=== PATIENT | female | born 1970 | race Caucasian/White ===

== ENCOUNTER 2016-09-28 14:10 | Inpatient (IN) | payer OTHER ==
[~2016-09-28] VITALS: Ht 167.6 cm; Wt 95.9 kg
[2016-09-29] MEDS ORDERED: VITATAB11 PO (12:07)
[2016-09-29] MEDS ORDERED: HYDR-3288 PO (12:07)
[2016-09-29] MEDS ORDERED: METO50TA PO (12:07)
[2016-09-29] MEDS ORDERED: CALCCHW23 CHEW (12:07)
[2016-09-29] MEDS ORDERED: MULT-120 PO (12:07)
[2016-09-29] MEDS ORDERED: OMEGCAP19 PO (12:07)
[2016-10-12] MEDS ORDERED: LABETALOL HCL 100 MG/20 ML VIAL IV ONE (05:00)
[2016-10-12] MEDS ORDERED: PHENYLEPHRINE HCL 10 MG/ML VIAL IV ONE (05:00)
[2016-10-12] MEDS ORDERED: PROPOFOL 1000 MG/100 ML INJ 100 ML IV ONE (05:00)
[2016-10-12] MEDS ORDERED: METOPROLOL TARTRATE 25 MG TAB PO PRN (05:45)
[2016-10-12] MEDS ORDERED: INSULIN HUMAN REGULAR 1,000 UNITS/10 ML VIAL SQ PRN (05:45)
[2016-10-12 05:57] VITALS: BP 142/75; PULSE 50; RESP 20; TEMP 98; O2SAT 98
[2016-10-12] MEDS ORDERED: VANCOMYCIN HCL 1000 MG VIAL ONE (06:00)
[2016-10-12] MEDS ORDERED: SODIUM CHLOR 0.9% 250 ML INJ 250 ML ONE (06:01)
[2016-10-12] MEDS ORDERED: VANCOMYCIN 1000 MG/NS 250 ML (for <70 kg) IV SCH ×2 (06:15)
[2016-10-12] MEDS ORDERED: ceFAZolin 2 GM PREMIX 50 ML ONE (06:30)
[2016-10-12] MEDS ORDERED: GENTAMICIN SULFATE 80 MG/2 ML VIAL ONE (06:30)
[2016-10-12] MEDS ORDERED: MIDAZOLAM HCL 2 MG/2 ML VIAL ONE (06:44)
[2016-10-12] MEDS ORDERED: FAMOTIDINE 20 MG/2 ML VIAL ONE (06:44)
[2016-10-12] MEDS ORDERED: fentaNYL CITRATE 250 MCG/5 ML AMP ONE (06:48)
[2016-10-12] MEDS ORDERED: ACETAMINOPHEN 1000 MG/100 ML VIAL IV ONE (06:48)
[2016-10-12] MEDS ORDERED: DEXAMETHASONE SOD PHOS 4 MG/ML VIAL ONE (06:49)
[2016-10-12] MEDS ORDERED: SODIUM CHLORID 0.9% 500 ML IV SCH (07:00)
[2016-10-12] MEDS ORDERED: SODIUM CHLORIDE 0.9% IV SCH (07:00)
[2016-10-12] MEDS ORDERED: TRANEXAMIC ACID IV SCH (07:00)
[2016-10-12] MEDS ORDERED: EXPAREL PERI-ARTICULAR INJECTION (TOTAL VOL. 60 ML) P-ARTICULR SCH ×2 (07:00)
[2016-10-12] MEDS ORDERED: LACTATED RINGER'S 1000 ML IV SCH (07:00)
[2016-10-12] MEDS ORDERED: HYDR-3366 PO (07:13)
[2016-10-12] MEDS ORDERED: XARE10TA PO (07:13)
--- NOTE | 2016-10-12 09:27 | PD.OP ---
cc: Darius Barraza MD Operative Report Date of Surgery: Oct 12, 2016 Preoperative Diagnosis: Severe right hip osteoarthritis Postoperative Diagnosis: Procedure: Right total hip arthroplasty via anterior approach Anesthesia: Gen. Surgeon: Darius Barraza Molecular Pathologist(s): PAIGE Arias PA-C The surgical procedure was assisted by my physician nurse's assistant. My P.A. presence was necessary throughout this case for the manipulation and positioning of the surgical extremity. My P.A. was assisting me throughout the duration of this procedure. The skill set of a physician nurse's assistant was medically necessary to complete this procedure. During the surgical case the surgical specialist was working at the back table and the physician nurse's assistant was directly assisting me. Operation and Findings: PLAN OF ACTIVITY Weight bear as tolerated. DRAINS: 7-mm KRISTI drain. IMPLANTS USED DePuy Corail size [13] stem with a size [50] [place] Gription cup and a [+1.5] ceramic Biolox ceramic head. DETAILS OF PROCEDURE: This patient has a long history of hip pain. Patient was found to have severe osteoarthritis. The patient had radiographic evidence of joint space narrowing with [id number] arthritis and osteophytes around the acetabulum as well as the femoral head. There was also some cystic changes. The patient failed conservative treatment with pain medications, anti-inflammatories, physical therapy, assistive devices including a cane, as well as therapeutic injection of the hip. Patient's hip arthritis was limiting his ability to ambulate and perform activities of daily living. The patient wished to proceed with surgery and informed consent was obtained. Operative site was marked. I discussed both posterior approach and anterior approach with the patient and decision was made for anterior approach. Patient was brought to OR and placed on OR table. IV sedation and general anesthesia was administered by anesthesiologist. Patient positioned on a Reina table and was given IV antibiotics. Time-out procedure was performed. The hip and thigh were prepped with alcohol followed by Hibiclens. The thigh was draped in the usual sterile fashion. Clean Air Suite was used for this procedure. The procedure began with a 5-inch incision over the anterolateral thigh. Subcutaneous tissue was dissected with Bovie. The fascia over the tensa fasciae latae was incised. Care was taken to avoid injury to the lateral femoral cutaneous nerve. The tensor muscle was retracted laterally. Sartorius was retracted medially. Retractors were now placed. The reflected head of the rectus is now elevated. A capsulotomy was performed over the anterior head capsule. Sutures were placed to help retract the capsule. At this point the femoral head and neck were identified. With soft tissue protected, oscillating saw was used to make a cut through the femoral neck, the femoral head was now removed. At this point attention was turned to preparation of the acetabulum. The labrum was excised. The acetabulum was sequentially reamed up to size [50]. A [place] cup was now placed. Fluoroscopy was used to aid in identification of appropriate version. Cup was fully impacted and found to have excellent fit. Hole eliminator was now placed. The liner was now impacted into the cup. At this point the hip was externally rotated. A hook was placed around the proximal femur. The capsule was released off the lateral and medial femur. The hip was now extended and adducted. Retractors were placed around the proximal femur to allow for exposure. A box osteotome was used to remove the lateral cortex of the femoral neck. A broach was used to help lateralize the prosthesis. Canal finder was used to create a path down the canal. Next, the canal was sequentially broached up to size [12]. A standard head was placed, and the hip was reduced. The hip was found to have good stability with good range of motion. The leg lengths were measured under fluoroscopy. The right leg was significantly shorter than the left. At this point a +9 head was now placed. Hip was again reduced. Leg lengths were found to be equal however the patient had significant increase in offset. At this point the 12 trial was removed. A size 13 trial broach was placed. The 13 broach was left in an elevated position to help correct the leg length discrepancy. A standard head was now placed. Hip was reduced. Leg lengths appeared to be equal. Patient had good stability throughout range of motion. Trial broach was removed. The Corail stem was opened. Stem was fully impacted into the proximal femur in appropriate version. The femoral head was placed. The hip was again reduced. Fluoroscopy confirmed excellent alignment of prosthesis. The wound was thoroughly irrigated and capsule was closed with #1 Vicryl. The fascia over the tensor fasciae muscle was closed with #1 Vicryl, subcutaneous tissue was closed with 3-0 Vicryl and the skin was closed with claudio and Dermabond skin closure. The capsule layers were injected with a mixture of saline and bupivicaine. Dressings were applied. The patient was transferred to Recovery Room in stable condition. Darius Barraza MD Oct 12, 2016 09:27
[2016-10-12] MEDS ORDERED: NALOXONE HCL 0.4 MG/ML AMP IV PRN (09:30)
[2016-10-12] MEDS ORDERED: ONDANSETRON HCL 4 MG/2 ML VIAL IVP PRN (09:30)
[2016-10-12] MEDS ORDERED: SODIUM CHLORIDE 0.9% FLUSH 5 ML FLUSH IVF PRN (09:30)
[2016-10-12] MEDS ORDERED: Post-op Orders (for Pharmacy) MISC XX ONE (09:30)
[2016-10-12] MEDS ORDERED: *HYDROmorphone PF 1 MG VIAL PERIprocedural Use ONLY ONE ×2 (09:45→10:12)
[2016-10-12] MEDS: LACTATED RINGER'S 1000 ML INJ 1,000 ML IV SCH ×2 (09:57→20:28)
[2016-10-12] MEDS: KETOROLAC TROMETHAMINE 30 MG/ML (IVP) VIAL IV PUSH SCH ×2 (10:00→22:09)
[2016-10-12] MEDS ORDERED: DO NOT ADM ANY ANTICOAGULANT DRUGS XX PRN (10:00)
[2016-10-12] MEDS ORDERED: NEOSTIGMINE 3 MG/3 ML SYR IV ONE (10:14)
[2016-10-12] MEDS ORDERED: PROPOFOL 200 MG/20 ML AMP IV ONE (10:14)
[2016-10-12] MEDS: ACETAMINOPHEN/HYDROcodone 325 MG/10 MG TAB PO PRN ×4 (10:15→22:22)
[2016-10-12] MEDS ORDERED: LACTATED RINGER'S 1000 ML INJ 1,000 ML IV ONE (10:15)
[2016-10-12] MEDS ORDERED: ONDANSETRON HCL 4 MG/2 ML VIAL IV PUSH ONE (10:15)
[2016-10-12] MEDS ORDERED: *MEPERIDINE 25 MG INJ VIAL PERIprocedural Use ONLY ONE (10:20)
--- NOTE | 2016-10-12 10:24 | RADRPT ---
EXAM DATE/TIME: 10/12/2016 09:42 [facility] COMPARISON: No previous studies available for comparison. INDICATIONS : Post surgery right hip MEDICAL HISTORY : None. SURGICAL HISTORY : None. ENCOUNTER: Initial ACUITY: 1 day PAIN SCORE: 10/10 LOCATION: Right Hip FINDINGS: No postoperative changes of right total hip replacement. Drain in soft tissues. Skin claudio laterall y. Normal alignment. CONCLUSION: 1. Postoperative right total hip replacement. John Bolanos MD on October 12, 2016 at 10:22 Board Certified Radiologist. This report was verified electronically.
[2016-10-12] MEDS ORDERED: *ENALAPRILAT 1.25 MG/ML VIAL PERIprocedural Use ONLY ONE (10:28)
[2016-10-12] MEDS ORDERED: TRANEXAMIC ACID INJ 1,000 MG in SODIUM CHLORIDE 0.9% INJ 100 ML IV ONE (10:30)
[2016-10-12 12:17] VITALS: BP 144/78; PULSE 57; RESP 17; TEMP 95.8; O2SAT 99
[2016-10-12] MEDS: HYDROmorphone HCL PF 1 MG/ML VIAL IV PUSH PRN ×2 (12:35→16:55)
[2016-10-12] MEDS: ceFAZolin 2 GM PREMIX 50 ML IV SCH ×2 (12:36→19:22)
[2016-10-12 17:00] VITALS: BP 106/63; PULSE 57; RESP 16; TEMP 95.3; O2SAT 99
[2016-10-12 17:54] VITALS: O2SAT 97
--- NOTE | 2016-10-12 17:56 | RADRPT ---
EXAM DATE/TIME: 10/12/2016 07:26 [facility] COMPARISON: No previous studies available for comparison. INDICATIONS : Right total hip replacement. MEDICAL HISTORY : None. SURGICAL HISTORY : None. ENCOUNTER: Initial ACUITY: 1 day PAIN SCORE: Non-responsive. LOCATION: Right hip. FINDINGS: Examination of the hip demonstrates total hip arthroplasty in satisfactory position. The alignment is anatomic. CONCLUSION: Post surgical changes as above. He Minor MD on October 12, 2016 at 17:54 Board Certified Radiologist. This report was verified electronically.
[2016-10-12] MEDS: VANCOMYCIN INJ 1,000 MG in SODIUM CHLOR 0.9% 250 ML INJ 250 ML IV SCH (19:21)
[2016-10-12 19:50] VITALS: BP 102/60; PULSE 57; RESP 15; TEMP 96.6; O2SAT 99
[2016-10-12] MEDS: SODIUM CHLORIDE 0.9% FLUSH 5 ML FLUSH IVF SCH (20:28)
[2016-10-13] VITALS (8 sets, daily range): BP systolic 94–128; BP diastolic 46–62; PULSE 54–82; RESP 16–18; TEMP 95.3–97.8; O2SAT 98–100
[2016-10-13] MEDS: ceFAZolin 2 GM PREMIX 50 ML IV SCH (00:20)
[2016-10-13] MEDS: ACETAMINOPHEN/HYDROcodone 325 MG/10 MG TAB PO PRN ×6 (02:20→19:38)
[2016-10-13] MEDS: CHLORHEXIDINE GLUCONATE 4% SOLN 120 ML BTL TOP SCH (02:37)
[2016-10-13] MEDS: VANCOMYCIN INJ 1,000 MG in SODIUM CHLOR 0.9% 250 ML INJ 250 ML IV SCH (05:25)
--- NOTE | 2016-10-13 07:11 | PD.ORT.PN ---
Subjective Subjective Remarks POD 1 s/p Right VERONICA - anterior doing well. no hip pain. reports pain in knee. out of bed and walked in room yesterday Objective Vitals Vital Signs Date Time Temp Pulse Resp B/P Pulse Ox O2 Delivery O2 Flow Rate FiO2 10/13/16 04:00 97.7 82 16 97/46 98 10/13/16 02:18 97.7 100/54 10/13/16 00:20 96.8 62 18 94/62 100 10/12/16 19:50 96.6 57 15 102/60 99 10/12/16 17:54 97 Nasal Cannula 2.00 10/12/16 17:00 95.3 57 16 106/63 99 10/12/16 12:17 95.8 57 17 144/78 99 10/12/16 11:50 55 13 151/87 99 Nasal Cannula 2 10/12/16 11:30 97.7 54 16 151/84 99 Nasal Cannula 2 10/12/16 11:00 52 13 153/95 99 Nasal Cannula 2 10/12/16 10:45 55 12 172/96 99 Nasal Cannula 2 10/12/16 10:30 52 15 172/102 99 Nasal Cannula 2 10/12/16 10:15 51 15 195/79 99 Nasal Cannula 2 10/12/16 10:00 55 13 174/97 99 Nasal Cannula 2 10/12/16 09:45 49 14 160/90 99 Nasal Cannula 2 10/12/16 09:36 98.6 80 16 158/79 99 Simple Mask 6 I/O 10/12/16 10/12/16 10/12/16 10/13/16 10/13/16 10/13/16 07:00 15:00 23:00 07:00 15:00 23:00 Intake Total 1290 ml 1779 ml 1174 ml Output Total 920 ml 1150 ml 1090 ml Balance 370 ml 629 ml 84 ml Intake Oral 290 ml 720 ml 480 ml IV Total 1059 ml 694 ml Other 1000 ml Output Urine Total 350 ml 950 ml 1000 ml Drainage Total 80 ml 200 ml 90 ml Estimated Blood Loss 400 ml Other 90 ml # Bowel Movements 0 0 0 Imaging Last 24 hours Impressions Hip and Pelvis X-Ray 10/12/16 0919 Signed Impressions: Service Date/Time: October 09:42 - CONCLUSION: 1. Postoperative right total hip replacement. John Bolanos MD Objective Remarks RLE: dressings clean and dry. intact. +drain. NVI Assessment & Plan Assessment and Plan 1) Right Anterior VERONICA - POD 1 -WBAT -DC drain with daily dressing changes on POD 2 -CM for rehab placement -DVT prophylaxis with lovenox. DC with Xarelto -RX on chart -3008 completed and on chart -plan for DC to rehab on sunday -f/u with [facility] or [facility] in 2 weeks Zion Turpin Oct 13, 2016 07:11
[2016-10-13] MEDS: KETOROLAC TROMETHAMINE 30 MG/ML (IVP) VIAL IV PUSH SCH ×2 (08:26→22:05)
[2016-10-13] MEDS: ENOXAPARIN SODIUM 40 MG/0.4 ML SYRINGE SQ SCH (08:27)
[2016-10-13 10:11] LABS: HEMATOCRIT 28.5 % (35.0-46.0); REVIEW FLAG FINAL
[2016-10-13] MEDS: DOCUSATE SODIUM 100 MG CAP PO SCH (19:37)
[2016-10-13] MEDS: SODIUM CHLORIDE 0.9% FLUSH 5 ML FLUSH IVF SCH (19:40)
[2016-10-13] MEDS: LACTATED RINGER'S 1000 ML INJ 1,000 ML IV SCH (22:49)
[2016-10-14] VITALS: BP 117/56; PULSE 63; RESP 20; TEMP 97.1; O2SAT 100
[2016-10-14] MEDS: ACETAMINOPHEN/HYDROcodone 325 MG/10 MG TAB PO PRN ×7 (00:02→21:02)
[2016-10-14] MEDS: CHLORHEXIDINE GLUCONATE 4% SOLN 120 ML BTL TOP SCH (06:15)
--- NOTE | 2016-10-14 07:29 | PD.ORT.PN ---
Subjective Subjective Remarks Right hip pain but controlled with PO meds. No new radiating leg pain today. No other complaints. No CP or SOB. Objective Vitals Vital Signs Date Time Temp Pulse Resp B/P Pulse Ox O2 Delivery O2 Flow Rate FiO2 10/14/16 00:00 97.1 63 20 117/56 100 10/13/16 20:00 97.0 67 18 128/59 98 10/13/16 18:30 99 21 10/13/16 16:00 96.8 57 16 107/60 100 10/13/16 12:00 95.3 64 16 100/56 99 10/13/16 08:22 2.00 10/13/16 08:15 97.8 54 16 99/55 100 I/O 10/13/16 10/13/16 10/13/16 10/14/16 10/14/16 10/14/16 07:00 15:00 23:00 07:00 15:00 23:00 Intake Total 1174 ml 480 ml 720 ml 240 ml Output Total 1090 ml 1190 ml 350 ml Balance 84 ml -710 ml 370 ml 240 ml Intake Oral 480 ml 480 ml 720 ml 240 ml IV Total 694 ml Output Urine Total 1000 ml 1100 ml 350 ml Drainage Total 90 ml 90 ml # Voids 0 1 # Bowel Movements 0 0 0 0 Result Diagram: 10/13/16920 Imaging Last 24 hours Impressions Hip and Pelvis X-Ray 10/12/16918 Signed Impressions: Service Date/Time: October 09:42 - CONCLUSION: 1. Postoperative right total hip replacement. John Bolanos MD Objective Remarks Sitting up in bed, NAD VSS RLE Dressing c/d/i, no erythema, mild swelling thigh and calf supple, neg homans +motor at, +sens, +nvi Pt seen and evaluated by Dr. Sim Casper Assessment & Plan Ortho Post Op Day #: 2 Problem List: Assessment and Plan 1) Right Anterior VERONICA - POD 2 -Ortho stable -PT - WBAT RLE. Walker as needed. -Drain dc'd yesterday. Dry daily dressing changes on POD 2 -CM for rehab placement / SNF -DVT prophylaxis with lovenox. DC with Xarelto -RX on chart -3008 completed and on chart. Plan on d/c to SNF on k[place] -f/u with [facility] or [facility] in 2 weeks Shannon Chambers Oct 14, 2016 07:29
[2016-10-14 07:54] VITALS: BP 118/69; PULSE 65; RESP 16; TEMP 96.8; O2SAT 97
[2016-10-14] MEDS: ENOXAPARIN SODIUM 40 MG/0.4 ML SYRINGE SQ SCH (08:44)
[2016-10-14] MEDS: DOCUSATE SODIUM 100 MG CAP PO SCH ×2 (08:45→21:03)
[2016-10-14] MEDS: SODIUM CHLORIDE 0.9% FLUSH 5 ML FLUSH IVF SCH ×2 (08:46→21:03)
[2016-10-14 10:09] VITALS: O2SAT 98
[2016-10-14] MEDS: LACTATED RINGER'S 1000 ML INJ 1,000 ML IV SCH ×2 (11:19→23:49)
[2016-10-14 11:34] VITALS: BP 97/49; PULSE 84; RESP 16; TEMP 98.7; O2SAT 98
[2016-10-14 15:34] VITALS: BP 118/55; PULSE 86; RESP 16; TEMP 97.2; O2SAT 99
[2016-10-14] MEDS: HYDROmorphone HCL PF 1 MG/ML VIAL IV PUSH PRN ×2 (17:47→22:37)
[2016-10-14 20:00] VITALS: BP 112/55; PULSE 87; RESP 18; TEMP 98.4; O2SAT 96
[2016-10-15] VITALS: BP 112/58; PULSE 88; RESP 16; TEMP 97.8; O2SAT 94
[2016-10-15] MEDS: ACETAMINOPHEN/HYDROcodone 325 MG/10 MG TAB PO PRN ×4 (03:50→16:22)
[2016-10-15 04:00] VITALS: BP 129/61; PULSE 85; RESP 20; TEMP 97.3; O2SAT 98
[2016-10-15] MEDS: HYDROmorphone HCL PF 1 MG/ML VIAL IV PUSH PRN (05:50)
[2016-10-15 08:00] VITALS: BP 108/61; PULSE 86; RESP 18; TEMP 96.7; O2SAT 97
--- NOTE | 2016-10-15 08:51 | PD.ORT.PN ---
Subjective Subjective Remarks Right hip pain but controlled with PO meds. No new radiating leg pain today. No other complaints. No CP or SOB. Prefered [facility] but likely going to [facility]. CM reviewing. Objective Vitals Vital Signs Date Time Temp Pulse Resp B/P Pulse Ox O2 Delivery O2 Flow Rate FiO2 10/15/16 04:00 97.3 85 20 129/61 98 10/15/16 00:00 97.8 88 16 112/58 94 10/14/16 20:00 98.4 87 18 112/55 96 10/14/16 15:34 97.2 86 16 118/55 99 10/14/16 11:34 98.7 84 16 97/49 98 10/14/16 10:09 98 21 I/O 10/14/16 10/14/16 10/14/16 10/15/16 10/15/16 10/15/16 07:00 15:00 23:00 07:00 15:00 23:00 Intake Total 240 ml 960 ml 780 ml 480 ml Balance 240 ml 960 ml 780 ml 480 ml Intake Oral 240 ml 960 ml 780 ml 480 ml # Voids 1 2 2 1 # Bowel Movements 0 0 0 0 Result Diagram: 10/13/16 09 Imaging Last 24 hours Impressions Hip and Pelvis X-Ray 10/12/16918 Signed Impressions: Service Date/Time: October 09:42 - CONCLUSION: 1. Postoperative right total hip replacement. John Bolanos MD Objective Remarks Ambulating to restroom, NAD VSS RLE Dressing c/d/i, no erythema, mild swelling thigh and calf supple, neg homans +motor at, +sens, +nvi Pt seen and evaluated by Dr. Sim Casper Assessment & Plan Ortho Post Op Day #: 3 Problem List: Assessment and Plan 1) Right Anterior VERONICA - POD 3 -Ortho stable. Ok to d/c to SNF today. -PT - WBAT RLE. Walker as needed. -Drain dc'd. Dry daily dressing changes. -CM for rehab placement / SNF. Pt wanted [facility] but likely going to [facility]. TBD. -DVT prophylaxis with lovenox. DC with Xarelto. RX on chart -3008 completed and on chart. -Plan on d/c to SNF today if placement set up. -f/u with [facility] or [facility] in 2 weeks Shannon Chambers Oct 15, 2016 08:51
[2016-10-15] MEDS ORDERED: WALKER WHEELS/F1 MIS (08:52)
[2016-10-15] MEDS ORDERED: MISC-163 (08:52)
[2016-10-15] MEDS: DOCUSATE SODIUM 100 MG CAP PO SCH (08:54)
[2016-10-15] MEDS: ENOXAPARIN SODIUM 40 MG/0.4 ML SYRINGE SQ SCH (08:54)
[2016-10-15] MEDS: SODIUM CHLORIDE 0.9% FLUSH 5 ML FLUSH IVF SCH (08:55)
--- NOTE | 2016-10-15 11:54 | HHI.FF ---
Face to Face Verification Diagnosis: (1) Osteoarthritis of right hip (2) S/P total hip arthroplasty Physical Therapy Gait training Hip: Total hip, Protocol: Right, Progress to weight bearing Right LE Weight Bearing: WB as tolerated Nursing Dressing Changes: Daily dressing change, Coverderm/Primapore (add xeroform POD 10) I have seen patient Evi Cisneros on 10/15/16. My clinical findings support the need for the requested home health care services because: Ltd mobility - disease progression I certify that my clinical findings support that this patient is homebound because: Post-op weakness Zion Turpin Oct 15, 2016 11:54
[2016-10-15 12:00] VITALS: BP 116/66; PULSE 90; RESP 18; TEMP 98; O2SAT 100
--- NOTE | 2016-10-15 12:14 | HHI.DS ---
Discharge Summary Admission Date Oct 12, 2016 at 05:08 Discharge Date: Oct 15, 2016 Admitting Diagnosis right hip OA Diagnosis: (1) S/P total hip arthroplasty Diagnosis: Principal Procedures Right VERONICA - Anterior CBC/BMP: 10/13/16 0921 Significant Findings Laboratory Tests Test 10/13/16 09:21 Hemoglobin 9.7 GM/DL (11.6-15.3) Hematocrit 28.5 % (35.0-46.0) PE at Discharge Ambulating to restroom, NAD VSS RLE Dressing c/d/i, no erythema, mild swelling thigh and calf supple, neg homans +motor at, +sens, +nvi Pt seen and evaluated by Dr. Sim Casper Hospital Course Patient admitted from outpatient for elective right total hip arthroplasty. Tolerated the procedure well. Was admitted to [address] [place] [address]. Was out of bed on postop day 1 to chair. Was ambulating on postoperative day 2. Daily dressing changes were initiated on postoperative day 2 as well as the drain discontinued. She was ambulating with assistance. She is not entirely stable, pain control and embolization safely and fit for discharge home with home health care. She'll be discharged today. She'll do daily dressing changes. She'll follow-up with office Dr. Mendenhall or his PA in 2 weeks. Pt Condition on Discharge: Good Discharge Disposition: Discharge to SNF Discharge Instructions Diet Instructions: As Tolerated, No Restrictions Activities You Can Perform: Weight Bearing as Yamileth Additional Activity Instruc.: VERONICA precautions Follow up Referrals: Orthopedics - 10/26/16 @ [facility] with Darius Mendenhall MD New Medications: 3-in-1 Bedside Toilet (3-in-1 Bedside Toilet) 1 Mis Mis 1 EA .ROUTE DIRECTED #1 EA Hydrocodone-Acetaminophen ([place]) 10-325 Mg Tab 1 TAB PO Q4H PRN PAIN #60 Ref 0 TAB Rivaroxaban (Xarelto) 10 Mg Tab 10 MG PO DAILY Blood Clot Prevention #14 Ref 0 TAB Walker with Front Wheels (Walker with Front Wheels) 1 Mis Mis 1 EA .ROUTE DIRECTED #1 Ref 0 EA Continued Medications: B-Complex Vitamins (Vitamin B Complex) 1 Tab 1 TAB PO DAILY Mexcqlz-Hidspmjhhc-Fbrapmu D (Calcium Gummies) 250-100-500 Mg-Unit Chew 2 EA CHEW DAILY TAB Metoprolol Tartrate (Metoprolol Tartrate) 50 Mg Tab 50 MG PO BID #60 Ref 0 TAB Multiple Vitamins W/ Minerals (Multivitamin Women) 1 Tab Tab 1 TAB PO DAILY Nutritional Supplement Ref 0 TAB [place] 3 Fatty Acids-[place] 6 FA ([place] 3-6-9 Complex) 1 Cap Cap 1 CAP PO DAILY Discontinued Medications: Hydrocodone-Acetaminophen ([place]) 7.5-325 mg Tab 2 TAB PO Q4H PRN PAIN Ref 0 TAB Zion Turpin Oct 15, 2016 12:14
[2016-10-15] MEDS: LACTATED RINGER'S 1000 ML INJ 1,000 ML IV SCH (12:19)
[2016-10-15 16:00] VITALS: BP 97/52; PULSE 84; RESP 18; TEMP 97.2; O2SAT 98
== END 2016-10-15 20:03 | disposition home health service (06) | DRG 470 ==
LOC: HSDI 10-12 05:08 → EDUNIT# 10-12 07:00 → N06B 10-12 12:08
PROVIDERS: ADMIT Orthopaedic Surgery Orthopaedic Trauma; ATTEND Orthopaedic Surgery Orthopaedic Trauma
PROC: 0SR903A Replacement of Right Hip Joint with Ceramic Synthetic Substitute, Uncemented, Open Approach (ICD-10-PCS; principal; 2016-10-12 06:52)
DX: M16.11 Unilateral primary osteoarthritis, right hip (principal)
CPT/HCPCS: 73501; 73502; 76000; 85014; 85018; 86850; 86900; 86901; C1776; C9290; J0131; J0690; J1100; J1170; J1580; J1650; J1885; J2175; J2250; J2370; J2405; J2710; J3010; J3370; J7050; J7120; L1830

== ENCOUNTER → 2016-09-29 | Outpatient (CLI) | payer OTHER ==
[~2016-09-29] MED LIST: CALCCHW23 CHEW; HYDR-3288 PO; HYDR-3366 PO; METO50TA PO; MISC-163; MULT-120 PO; OMEGCAP19 PO; VITATAB11 PO; WALKER WHEELS/F1 MIS; XARE10TA PO
== END ==
LOC: CPRE 11:15
PROVIDERS: ATTEND Orthopaedic Surgery Orthopaedic Trauma
DX: Z01.810 Encounter for preprocedural cardiovascular examination (principal); Z01.812 Encounter for preprocedural laboratory examination; Z96.60 Presence of unspecified orthopedic joint implant; Z79.01 Long term (current) use of anticoagulants; Z01.811 Encounter for preprocedural respiratory examination; Z01.818 Encounter for other preprocedural examination; Z13.9 Encounter for screening, unspecified; M79.609 Pain in unspecified limb